=== PATIENT | male | born 1980 | race Two or more races ===

== ENCOUNTER 2022-05-24 19:16 | Emergency (ER) | payer MEDICAID ==
[~2022-05-24] VITALS: Ht 170.2 cm; Wt 69.8 kg
[2022-05-24 20:25] LABS: BASOPHILS # (AUTO) 0.1 X10'3 (0-0.2); BASOPHILS % (AUTO) 0.8 % (0-1); EOSINOPHILS # (AUTO) 0.2 X10'3 (0-0.9); EOSINOPHILS % (AUTO) 1.6 % (0-6); HEMATOCRIT 39.8 % (42.0-52.0); HEMOGLOBIN 13.4 g/dl (14.0-17.9); LYMPHOCYTES # (AUTO) 2.6 X10'3 (1.1-4.8); MEAN CORPUSCULAR HEMOGLOBIN 28.4 PG (27.0-31.0); MEAN CORPUSCULAR HGB CONC 33.8 g/dL (33.0-36.5); MEAN CORPUSCULAR VOLUME 84.2 FL (78-98); MEAN PLATELET VOLUME 8.2 FL (7.4-10.4); MONOCYTES # (AUTO) 0.8 X10'3 (0-0.9); MONOCYTES % (AUTO) 7.5 % (2-12); NEUTROPHILS # (AUTO) 6.8 X10'3 (1.8-7.7); NEUTROPHILS % (AUTO) 65.1 % (42-75); PLATELET COUNT 279 X10'3 (140-440); RED BLOOD COUNT 4.72 X10'6 (4.70-6.10); RED CELL DISTRIBUTION WIDTH 13.8 % (11.5-14.5); WHITE BLOOD COUNT 10.5 X10'3 (4.5-11.0)
[2022-05-24 20:42] LABS: ALANINE AMINOTRANSFERASE 30 U/L (12-78); ALBUMIN 3.6 G/DL (3.4-5.0); ALBUMIN/GLOBULIN RATIO 1.2 (1.1-1.5); ALKALINE PHOSPHATASE 54 IU/L (46-116); ANION GAP 10 (8-16); ASPARTATE AMINO TRANSFERASE 16 U/L (10-37); BILIRUBIN,TOTAL 0.2 MG/DL (0.1-1.0); BLOOD UREA NITROGEN 16 MG/DL (7-18); BUN/CREATININE RATIO 16.8 (5.4-32.0); CALCIUM 9.1 MG/DL (8.5-10.1); CHLORIDE 108 MMOL/L (99-107); CREATININE 0.95 MG/DL (0.60-1.10); GLUCOSE 93 MG/DL (70-104); SODIUM 143 MMOL/L (135-145); TOTAL CARBON DIOXIDE 25.1 MMOL/L (24-32); TOTAL PROTEIN 6.7 G/DL (6.4-8.2); eGFR 87 ML/MIN
[2022-05-24] MEDS ORDERED: pantoprazole 40 MG vial IV ONE (22:25)
[2022-05-24] MEDS ORDERED: ondansetron/PF 4mg/2ml inj IV ONE (22:25)
[2022-05-24] MEDS ORDERED: normal saline 1000ML IV soln IVB ONE (22:25)
[2022-05-24] MEDS ORDERED: pantoprazole 40MG/NS 100ML BAG 100 ML IV ONE (22:30)
[2022-05-24] MEDS ORDERED: PANT-47 PO (22:37)
[2022-05-24] MEDS ORDERED: ONDA8TAB13 PO (22:37)
[2022-05-24 22:39] LABS: LIPASE 160 U/L (73-393)
[2022-05-25 01:35] VITALS: BP 112/74
== END 2022-05-25 01:40 | disposition home or self-care (01) ==
LOC: ER 19:17
DX: R10.13 Epigastric pain (principal); R11.0 Nausea; I10 Essential (primary) hypertension; I25.2 Old myocardial infarction; J44.9 Chronic obstructive pulmonary disease, unspecified; F17.200 Nicotine dependence, unspecified, uncomplicated; F12.90 Cannabis use, unspecified, uncomplicated; Z86.14 Personal history of Methicillin resistant Staphylococcus aureus infection; Z72.89 Other problems related to lifestyle; Z79.899 Other long term (current) drug therapy; Z87.11 Personal history of peptic ulcer disease
CPT/HCPCS: 36415; 71045; 80053; 83690; 83880; 84484; 85025; 93005; 96365; 96375; 99285; C9113; J2405; J7030

== ENCOUNTER 2022-06-14 21:01 | Emergency (ER) | payer MEDICAID ==
[~2022-06-14] VITALS: Ht 170.2 cm; Wt 72.0 kg
[~2022-06-14 21:01] MED LIST: ONDA8TAB13 PO; PANT-47 PO
[2022-06-14 21:06] VITALS: BP 127/66
== END 2022-06-14 22:37 | disposition home or self-care (01) ==
LOC: ER 21:01
DX: S90.822A Blister (nonthermal), left foot, initial encounter (principal); I10 Essential (primary) hypertension; I51.9 Heart disease, unspecified; F12.10 Cannabis abuse, uncomplicated; Z86.14 Personal history of Methicillin resistant Staphylococcus aureus infection; X58.XXXA Exposure to other specified factors, initial encounter; Y93.89 Activity, other specified; Y92.89 Other specified places as the place of occurrence of the external cause; Y99.8 Other external cause status
CPT/HCPCS: 99281

== ENCOUNTER 2022-06-24 07:44 | Emergency (ER) | payer MEDICAID ==
[~2022-06-24] VITALS: Ht 170.2 cm; Wt 72.7 kg
[2022-06-24 07:51] VITALS: BP 143/75
--- NOTE | 2022-06-24 07:55 | NUR ---
While in triage, pt was evaluated by a provider. When asked what his goal was in the ED today, pt responded "well, got any clean socks?". Pt was provided clean hospital socks and instructed to return to the lobby.
== END 2022-06-24 08:27 | disposition home or self-care (01) ==
LOC: ER 07:44
DX: F12.10 Cannabis abuse, uncomplicated (principal); M79.10 Myalgia, unspecified site; F15.10 Other stimulant abuse, uncomplicated; I11.9 Hypertensive heart disease without heart failure; Z59.00 Homelessness unspecified; Z98.890 Other specified postprocedural states; Z00.8 Encounter for other general examination
CPT/HCPCS: 99281

== ENCOUNTER 2022-06-24 19:47 | Emergency (ER) | payer MEDICAID | END 2022-06-24 20:47 | disposition left against medical advice (07) | LOC: EEVIPCON 19:48 → ER 19:48 | DX: R51.9 Headache, unspecified (principal); Z53.21 Procedure and treatment not carried out due to patient leaving prior to being seen by health care provider ==